=== PATIENT | female | born 1980 | race Caucasian/White ===

== ENCOUNTER 2017-08-21 02:19 | Emergency (ER) | payer OTHER ==
[~2017-08-21] VITALS: Ht 152.4 cm; Wt 70.3 kg
[2017-08-21 02:22] VITALS: BP 137/95
--- NOTE | 2017-08-21 02:26 | NUR ---
PT GIVEN URINE CUP...PT IS UNABLE TO PROVIDE URINE AT THIS TIME.
--- NOTE | 2017-08-21 02:30 | NUR ---
PT TAKEN TO BED 11
--- NOTE | 2017-08-21 02:35 | NUR ---
PATIENT IS A 36 Y/O FEMALE WHO PRESENTS TO THE ED C/O ABD PAIN. PT STATES THAT IT STARTED X2 HOURS AGO. PT REPORTS RUQ 8/10 ACHING PAIN THAT RADIATES TO THE R FLANK AND BACK. PT DENIES CP, SOB, REPORTS NAUSEA DENIES VOMITING/DIARRHEA. PT AAOX4, RR EVEN/UNLABORED, LUNG SOUNDS CLEAR BL. PT AAOX4, RR EVEN/UNLABORED. PT REPOSITIONED FOR COMFORT, BED IN LOWEST POSITION. ER MD DR. REYES NOTIFIED. WILL CONTINUE TO MONITOR.
--- NOTE | 2017-08-21 02:37 | NUR ---
PATIENT UNABLE TO URINATE AT THIS TIME. PATIENT GIVEN WATER CUP.
[2017-08-21] MEDS ORDERED: ONDANSETRON 4 MG ODT PO ONE (02:45)
[2017-08-21] MEDS ORDERED: IBUPROFEN 600 MG TAB PO ONE (02:45)
[2017-08-21 03:17] LABS: ALBUMIN 3.7 g/dL (3.4-5.0); CARBON DIOXIDE 27.5 mmol/L (21-32); CREATININE 1.3 mg/dL (0.6-1.3); POTASSIUM 4.5 mmol/L (3.5-5.1); TOTAL BILIRUBIN 0.2 mg/dL (0.0-1.0)
--- NOTE | 2017-08-21 03:17 | NUR ---
Ultrasound at bedside.
[2017-08-21 03:18] LABS: BASOPHILS # (AUTO) 0.1 K/uL (0.00-0.22); BASOPHILS % (AUTO) 0.4 % (0.0-2.0); EOSINOPHILS # (AUTO) 1.6 K/uL (0-0.4); EOSINOPHILS % (AUTO) 11.6 % (0.0-4.0); HEMATOCRIT 41.6 % (36-48); HEMOGLOBIN 13.7 g/dL (12.0-16.0); LYMPHOCYTES # (AUTO) 4.8 K/uL (2.5-16.5); LYMPHOCYTES % (AUTO) 35.2 % (20.5-51.1); MEAN CORPUSCULAR HEMOGLOBIN 29 pg (27-31); MEAN CORPUSCULAR HGB CONC 33 g/dL (33-37); MEAN CORPUSCULAR VOLUME 87.3 fL (80-94); MONOCYTES # (AUTO) 1.1 K/uL (0.8-1.0); NEUTROPHILS # (AUTO) 6.1 K/uL (1.8-7.7); NEUTROPHILS % (AUTO) 44.8 % (42.2-75.2); PLATELET COUNT (AUTO) 401 K/uL (140-450); RED BLOOD CELL COUNT(AUTO) 4.77 MIL/uL (4.20-5.40); RED CELL DISTRIBUTION WIDTH 13.5 % (11.6-13.7); WHITE BLOOD COUNT (AUTO) 13.6 K/uL (4.8-10.8)
--- NOTE | 2017-08-21 03:35 | NUR ---
PATIENT PROVIDED AT THIS TIME. Addendum: 08/21/17 at 0347 by [facility] PATIENT PROVIDED URINE AT THIS TIME.
[2017-08-21 03:46] LABS: APPEARANCE,URINE CLEAR (CLEAR); BILIRUBIN,URINE NEGATIVE (NEGATIVE); BLOOD, URINE TRACE-I (NEGATIVE); COLOR,URINE YELLOW (YELLOW); LEUKOCYTE ESTERASE ,URINE NEGATIVE (NEGATIVE); NITRITE, URINE NEGATIVE (NEGATIVE); UGLUCOSE NEGATIVE (NEGATIVE)
[2017-08-21 03:53] LABS: RBC,URINE 0-5 (RARE) /HPF (0-5); WBC,URINE 0-5 (RARE) /HPF (0-5)
[2017-08-21 04:00] VITALS: BP 131/91
--- NOTE | 2017-08-21 04:03 | NUR ---
Patient discharged with v/s stable. Written and verbal after care instructions given and explained. Patient alert, oriented and verbalized understanding of instructions. Ambulatory with steady gait. All questions addressed prior to discharge. ID band removed. Patient advised to follow up with PMD. Rx of norco, ibuprofen, zofran odt given. Patient educated on indication of medication including possible reaction and side effects. Opportunity to ask questions provided and answered.
== END 2017-08-21 04:03 | disposition home or self-care (01) ==
LOC: MED 02:19
DX: K80.70 Calculus of gallbladder and bile duct without cholecystitis without obstruction (principal)
CPT/HCPCS: 36415; 76705; 80053; 81001; 81025; 83690; 85025; 99285; Q0092; S0119